=== PATIENT | female | born 1985 | race Two or more races ===

== ENCOUNTER 2020-09-24 09:30 | Emergency (ER) | payer MEDICAID ==
[~2020-09-24] VITALS: Ht 172.7 cm; Wt 68.0 kg
[2020-09-24 10:25] LABS: BILIRUBIN,URINE NEGATIVE (NEG); CLARITY,URINE CLEAR; COLOR,URINE AMBER; NITRITE,URINE NEGATIVE (NEG); PROTEIN,URINE 30 mg/dL (NEG-TRACE)
[2020-09-24] MEDS: IV NORMAL SALINE 1000ML BAG 1,000 ML IV SCH (10:31)
[2020-09-24 10:41] LABS: BACTERIA,URINE FEW /HPF (0-FEW); RBC,URINE 20-40 /HPF (0-2)
[2020-09-24 10:47] LABS: BASO % 1 % (0-3); EOS % 0 % (0-3); HEMATOCRIT 37.9 % (36.0-47.0); LYMPH # 0.6 x10^3/uL (1.0-4.8); LYMPH % 13 % (24-48); MEAN CORPUSCULAR HEMOGLOBIN 32 pg (25-35); MEAN CORPUSCULAR HGB CONC 34 g/dL (31-37); MEAN CORPUSCULAR VOLUME 93 fL (79-100); MONO # 0.3 x10^3/uL (0.0-1.1); MONO % 5 % (0-9); NEUT # 4.2 x10^3/uL (1.8-7.7); NEUT % 82 % (31-73); PLATELET COUNT 289 x10^3/uL (140-400); RED BLOOD COUNT 4.08 x10^6/uL (3.50-5.40); RED CELL DISTRIBUTION WIDTH 13.3 % (11.5-14.5); WHITE BLOOD COUNT 5.2 x10^3/uL (4.0-11.0)
--- NOTE | 2020-09-24 10:47 | PHYS DOC ---
Past Medical History Past Medical History: No Pertinent History Past Surgical History: Other Additional Past Surgical Histo: D&C Smoking Status: Never Smoker Alcohol Use: None General Adult EDM: Chief Complaint: FEVER HPI: HPI: Patient is a 35 year old female who presents with had a baby on September 12 and had a uncomplicated normal and vaginal delivery by Dr. Jones. She states that last night she began to have fever, body aches and pelvic cramping. She states that also her lower abdomen seems to be more tender than it has been. She states she is still having vaginal bleeding but states that it is not to have a and she is not having large clots. She is not going through more than 1 pad an hour. She currently rates her pain at a 4 out of 10. She denies urinary symptoms, foul-smelling abnormal vaginal discharge, nausea, vomiting, dizziness, syncope, breast redness or tenderness, back pain, shortness of breath, chest pain, cough. Review of Systems: Review of Systems: Constitutional: + fever or chills. [] Eyes: Denies change in visual acuity. [] HENT: Denies nasal congestion or sore throat. [] Respiratory: Denies cough or shortness of breath. [] Cardiovascular: Denies chest pain or edema. [] GI: +abdominal pain, denies nausea, vomiting, bloody stools or diarrhea. [] : Denies dysuria. [] Musculoskeletal: Denies back pain or joint pain. + Generalized body aches [] Integument: Denies rash. [] Neurologic: + Intermittent headache, denies focal weakness or sensory changes. [] Endocrine: Denies polyuria or polydipsia. [] Lymphatic: Denies swollen glands. [] Psychiatric: Denies depression or anxiety. [] Heart Score: C/O Chest Pain: No Risk Factors: Risk Factors: DM, Current or recent (<one month) smoker, HTN, HLP, family history of CAD, obesity. Risk Scores: Score 0 - 3: 2.5% MACE over next 6 weeks - Discharge Home Score 4 - 6: 20.3% MACE over next 6 weeks - Admit for Clinical Observation Score 7 - 10: 72.7% MACE over next 6 weeks - Early Invasive Strategies Current Medications: Current Medications Medications (Trade) Dose Ordered Sig/Bronwyn Start Time Stop Time Status Last Admin Dose Admin Sodium Chloride 1,000 ml @ 1,000 mls/hr Q1H 09/24/20 10:15 09/24/20 11:14 09/24/20 10:31 1,000 MLS/HR Allergies: Allergies: Allergies Coded Allergies Type Severity Reaction Last Updated Verified No Known Drug Allergies 09/24/20 No Physical Exam: PE: Constitutional: Well developed, well nourished, no acute distress, non-toxic appearance. [] HENT: Normocephalic, atraumatic, bilateral external ears normal, oropharynx moist, no oral exudates, nose normal. [] Eyes: PERRLA, EOMI, conjunctiva normal, no discharge. [] Neck: Normal range of motion, no tenderness, supple, no stridor. [] Cardiovascular:Heart rate regular rhythm, no murmur [] Lungs & Thorax: Bilateral breath sounds clear to auscultation [] Abdomen: Bowel sounds normal, soft, no tenderness, no masses, no pulsatile diana s. [] Skin: Warm, dry, no erythema, no rash. [] Back: No tenderness, no CVA tenderness. [] Extremities: No tenderness, no cyanosis, no clubbing, ROM intact, no edema. [] Neurologic: Alert and oriented X 3, normal motor function, normal sensory function, no focal deficits noted. [] Psychologic: Affect normal, judgement normal, mood normal. Normal physical exam [] Current Patient Data: Labs: Laboratory Tests Test 09/24/20 09:55 09/24/20 09:58 Urine Collection Type Unknown Urine Color Haylee Urine Clarity Clear Urine pH 7.0 (<5.0-8.0) Urine Specific [place] 1.025 (1.000-1.030) Urine Protein 30 mg/dL (NEG-TRACE) Urine Glucose (UA) Negative mg/dL (NEG) Urine Ketones (Stick) Negative mg/dL (NEG) Urine Blood Large (NEG) Urine Nitrite Negative (NEG) Urine Bilirubin Negative (NEG) Urine Urobilinogen Dipstick 1.0 mg/dL (0.2 mg/dL) Urine Leukocyte Esterase Large (NEG) Urine RBC 20-40 /HPF (0-2) Urine WBC 11-20 /HPF (0-4) Urine Squamous Epithelial Cells Few /LPF Urine Bacteria Few /HPF (0-FEW) Urine Mucus Slight /LPF POC Urine HCG, Qualitative Hcg positive (Negative) Vital Signs: Vital Signs Date Time Temp Pulse Resp B/P (MAP) Pulse Ox O2 Delivery O2 Flow Rate FiO2 09/24/20 09:55 98.8 55 16 147/73 (97) 100 Room Air 98.8 EKG: EKG: [] Radiology/Procedures: Radiology/Procedures: [] Impression: [facility] [address] [place] [address] IMAGING REPORT Signed PATIENT: RODO MOSER VACCOUNT: [id number] : 1985 LOCATION: ER AGE: 35 SEX: F EXAM STATUS: REG ER ORD. PHYSICIAN: LISSETH GUPTA APRN REASON: POST FEVER, AND ABDOMINAL PAIN PROCEDURE: CT ABD PELV W/ IV CONTRST ONLY CT scan of the abdomen and pelvis with contrast 09/24/2020 CLINICAL HISTORY: with fever. Abdominal pain. TECHNIQUE: After the intravenous administration of 75 cc of Omnipaque 300 only, contiguous, 2.5 mm axial sections were obtained through the abdomen and pelvis. One or more of the following individualized dose reduction techniques were utilized for this study: 1. Automated exposure control. 2. Adjustment of the mA and/or kV according to patient size. 3. Use of iterative reconstruction technique. FINDINGS: Images through the lung bases are within normal limits. The liver, spleen, pancreas, adrenal glands and kidneys are within normal limits. The gallbladder is slightly contracted. No free fluid or free air is within the abdomen. There is no evidence of bowel obstruction. There is a small fat- containing umbilical hernia which measures 1.6 cm in size. The appendix is well- visualized and is within normal limits. Images through the pelvis demonstrate the uterus to be enlarged system of the patient's being . The endometrial canal is distended with fluid. Small collections of air is seen. Increased attenuation which may represent blood products is noted. Prominent enhancing dilated vessels are seen within the uterus, right greater than left and within the adnexa. A uterine AVM is not excluded. No adnexal mass is seen. No free fluid is noted. Calcifications are seen within the pelvis consistent with phleboliths. Minimal S-shaped curvature of the thoracolumbar spine is seen. IMPRESSION: 1. Fluid and what appear to be blood products along with a small collection of air are seen within the endometrial canal of the uterus. This could be a normal finding. Retained products of conception or endometritis are not excluded, however. Prominent enhancing dilated vessels are seen within the uterus, right greater than left and within the adnexa. An uterine AVM is not excluded. Further evaluation of these findings with pelvic ultrasound is recommended. 2. No additional acute abnormality is seen. Electronically signed by: Abilio De León MD (09/24/2020 11:53 AM) [id number] DICTATED and SIGNED BY: ABILIO DE LEÓN MD DATE: 09/24/20 [id number] [facility] [address] [place], [place] [id number] IMAGING REPORT Signed PATIENT: RODO MOSER VACCOUNT: [id number] : 1985 LOCATION: ER AGE: 35 SEX: F EXAM STATUS: REG ER ORD. PHYSICIAN: LISSETH GUPTA APRN REASON: abdnormal ct findings, post PROCEDURE: PELVIS COMPLETE Transabdominal Pelvic Ultrasound: Indications: Reason: abdnormal ct findings, post Technique: Transabdominal sonographic imaging was performed and multiple static images were obtained. Results: Uterus: Hyperemic The endometrium is thickened and heterogeneous and measures 5.4 mm thick. The right ovary appears normal with normal blood flow and measures 3.4 x 2.8 x 2.1 cm. The left ovary appears normal with normal blood flow and measures 4.7 x 3.0 x 3.1 cm. Impression: Thickened heterogeneous endometrium and hyperemia the uterus consistent with retained products of conception. Electronically signed by: Keshawn Hurley III, MD (09/24/2020 1:08 PM) [facility] DICTATED and SIGNED BY: KESHAWN HURLEY III, MD DATE: 09/24/20 [id number] Course & Med Decision Making: Course & Med Decision Making Pertinent Labs and Imaging studies reviewed. (See chart for details) See HPI. Alert and oriented x4. Ambulatory with a steady gait. Speaks in full clear sentences. Skin pink warm and dry. Abdomen is soft and nontender. She is afebrile here in the ED. She states yesterday her temperature got as high as 100.1. Patient does have retained products. She does not have a white count. I have spoken to Dr. Jones who delivered her baby and he states he will be down to see the patient. I did give her a dose of Rocephin. Dr. Jones has come down to see the patient he states he will take her for a D&C. Ordered a rapid Covid on her. [] Dragon Disclaimer: Dragon Disclaimer: This electronic medical record was generated, in whole or in part, using a voice recognition dictation system. Departure Departure Impression: Primary Impression: Retained products of conception Additional Impression: Fever Qualified Codes: R50.9 - Fever, unspecified Disposition: 01 DC HOME SELF CARE/HOMELESS Condition: STABLE Referrals: NO PCP (PCP) LISSETH GUPTA UNIX ENGINEER Sep 24, 2020 10:47
[2020-09-24 10:56] LABS: PROTHROMBIN TIME PATIENT 13.8 SEC (11.7-14.0)
[2020-09-24 11:04] LABS: CALCIUM 8.1 mg/dL (8.5-10.1); CREATININE 0.8 mg/dL (0.6-1.0); GFR 81.2; POTASSIUM 3.6 mmol/L (3.5-5.1)
[2020-09-24 11:09] LABS: ALBUMIN 2.9 g/dL (3.4-5.0); ALBUMIN/GLOBULIN RATIO 0.7 (1.0-1.7); TOTAL BILIRUBIN 0.5 mg/dL (0.2-1.0); TOTAL PROTEIN 6.9 g/dL (6.4-8.2)
[2020-09-24] MEDS ORDERED: CONTRAST GIVEN. MC PRN (11:15)
[2020-09-24] MEDS: IOHEXOL 300 MG/ML 100ML VIAL. IV ONE (11:20)
--- NOTE | 2020-09-24 11:55 | RAD ---
CT scan of the abdomen and pelvis with contrast 09/24/2020 CLINICAL HISTORY: with fever. Abdominal pain. TECHNIQUE: After the intravenous administration of 75 cc of Omnipaque 300 only, contiguous, 2.5 mm ax ial sections were obtained through the abdomen and pelvis. One or more of the following individualized dose reduction techniques were utilized for this study: 1. Automated exposure control. 2. Adjustment of the mA and/or kV according to patient size. 3. Use of iterative reconstruction technique. FINDINGS: Images through the lung bases are within normal limits. The liver, spleen, pancreas, adrenal glands and kidneys are within normal limits. The gallbladder is slightly contracted. No free fluid or free air is within the abdomen. There is no evidence of bowel obstruction. There is a small fat-containing umbilical hernia which measures 1.6 cm in size. The appendix is well-visualized and is within normal limits. Images through the pelvis demonstrate the uterus to be enlarged system of the patient's being postpar gabriele. The endometrial canal is distended with fluid. Small collections of air is seen. Increased atten uation which may represent blood products is noted. Prominent enhancing dilated vessels are seen with in the uterus, right greater than left and within the adnexa. A uterine AVM is not excluded. No adnex al mass is seen. No free fluid is noted. Calcifications are seen within the pelvis consistent with ph leboliths. Minimal S-shaped curvature of the thoracolumbar spine is seen. IMPRESSION: 1. Fluid and what appear to be blood products along with a small collection of air are seen within th e endometrial canal of the uterus. This could be a normal finding. Retained products of co nception or endometritis are not excluded, however. Prominent enhancing dilated vessels are seen with in the uterus, right greater than left and within the adnexa. An uterine AVM is not excluded. Further evaluation of these findings with pelvic ultrasound is recommended. 2. No additional acute abnormality is seen. Electronically signed by: Abilio De León MD (09/24/2020 11:53 AM) [id number]
--- NOTE | 2020-09-24 13:11 | RAD ---
Transabdominal Pelvic Ultrasound: Indications: Reason: abdnormal ct findings, post Technique: Transabdominal sonographic imaging was performed and multiple static images were obtained . Results: Uterus: Hyperemic The endometrium is thickened and heterogeneous and measures 5.4 mm thick. The right ovary appears normal with normal blood flow and measures 3.4 x 2.8 x 2.1 cm. The left ovary appears normal with normal blood flow and measures 4.7 x 3.0 x 3.1 cm. Impression: Thickened heterogeneous endometrium and hyperemia the uterus consistent with retained products of con ception. Electronically signed by: Artur Lu III, MD (09/24/2020 1:08 PM) [facility]
--- NOTE | 2020-09-24 14:01 | PDOC1 ---
UNIFORMER H&P Date of Admission: Date of Admission: History of Present Illness: 35y s/p on 09/12/20 who presents to the ER with f/c. She states that the f/c began last night. She also felt an increased intensity of her cramps. She thinks her VB has increased a little. In the ER, labs and imaging was obtained. The pt had no WBC but a slight left shift. Her Hgb was up 13.0 (10.9 on d/c). A CT revealed 1. Fluid and what appear to be blood products along with a small collection of air are seen within the endometrial canal of the uterus. This could be a normal finding. Retained products of conception or endometritis are not excluded, however. Prominent enhancing dilated vessels are seen within the uterus, right greater than left and within the adnexa. An uterine AVM is not excluded. Further evaluation of these findings with pelvic ultrasound is recommended. 2. No additional acute abnormality is seen. An u/s revealed Thickened heterogeneous endometrium and hyperemia the uterus consistent with retained products of conception. Discussed results with the pt. Explained that imaging not definitive for alem ined products but with her h/o retained products and the u/s thinking it to be more likely, would benefit to performing D&C. PMH: Denies PSH: Denies Meds: PNV All: NKDA OBHx: TSVD x 4 SH: no tob, no EtOH FH: noncontributory Medications: Meds: Current Medications Medications (Trade) Dose Ordered Sig/Bronwyn Route PRN Reason Start Time Stop Time Status Last Admin Dose Admin Sodium Chloride 1,000 ml @ 1,000 mls/hr Q1H IV 09/24/20 10:15 09/24/20 11:14 DC 09/24/20 10:31 Iohexol (Omnipaque 300 Mg/ml) 75 ml 1X ONCE IV 09/24/20 11:30 09/24/20 11:31 DC 09/24/20 11:20 Allergies: Coded Allergies: No Known Drug Allergies (Unverified , 09/24/20) Physical Exam: Vital Signs: Vital Signs Date Time Temp Pulse Resp B/P (MAP) Pulse Ox O2 Delivery O2 Flow Rate FiO2 09/24/20 09:55 98.8 55 16 147/73 (97) 100 Room Air 98.8 PE: GENERAL: No apparent distress. Alert and oriented. HEENT: Head normocephalic, atraumatic. NECK: Supple LUNGS: Clear to auscultation. HEART: RRR, S1, S2 present, pulses intact ABDOMEN: Soft, positive bowel sounds. EXTREMITIES: No cyanosis or edema. NEUROLOGIC: Normal speech, normal tone PSYCHIATRIC: Normal affect, normal mood. SKIN: No ulceration. Labs: Laboratory Tests Test 09/24/20 09:55 09/24/20 09:58 09/24/20 10:30 Urine Collection Type Unknown Urine Color Haylee Urine Clarity Clear Urine pH 7.0 (<5.0-8.0) Urine Specific [place] 1.025 (1.000-1.030) Urine Protein 30 mg/dL (NEG-TRACE) Urine Glucose (UA) Negative mg/dL (NEG) Urine Ketones (Stick) Negative mg/dL (NEG) Urine Blood Large (NEG) Urine Nitrite Negative (NEG) Urine Bilirubin Negative (NEG) Urine Urobilinogen Dipstick 1.0 mg/dL (0.2 mg/dL) Urine Leukocyte Esterase Large (NEG) Urine RBC 20-40 /HPF (0-2) Urine WBC 11-20 /HPF (0-4) Urine Squamous Epithelial Cells Few /LPF Urine Bacteria Few /HPF (0-FEW) Urine Mucus Slight /LPF POC Urine HCG, Qualitative Hcg positive (Negative) White Blood Count 5.2 x10^3/uL (4.0-11.0) Red Blood Count 4.08 x10^6/uL (3.50-5.40) Hemoglobin 13.0 g/dL (12.0-15.5) Hematocrit 37.9 % (36.0-47.0) Mean Corpuscular Volume 93 fL (79-100) Mean Corpuscular Hemoglobin 32 pg (25-35) Mean Corpuscular Hemoglobin Concent 34 g/dL (31-37) Red Cell Distribution Width 13.3 % (11.5-14.5) Platelet Count 289 x10^3/uL (140-400) Neutrophils (%) (Auto) 82 % (31-73) H Lymphocytes (%) (Auto) 13 % (24-48) L Monocytes (%) (Auto) 5 % (0-9) Eosinophils (%) (Auto) 0 % (0-3) Basophils (%) (Auto) 1 % (0-3) Neutrophils # (Auto) 4.2 x10^3/uL (1.8-7.7) Lymphocytes # (Auto) 0.6 x10^3/uL (1.0-4.8) L Monocytes # (Auto) 0.3 x10^3/uL (0.0-1.1) Eosinophils # (Auto) 0.0 x10^3/uL (0.0-0.7) Basophils # (Auto) 0.0 x10^3/uL (0.0-0.2) Prothrombin Time 13.8 SEC (11.7-14.0) Prothrombin Time INR 1.1 (0.8-1.1) Sodium Level 136 mmol/L (136-145) Potassium Level 3.6 mmol/L (3.5-5.1) Chloride Level 102 mmol/L (98-107) Carbon Dioxide Level 28 mmol/L (21-32) Anion Gap 6 (6-14) Blood Urea Nitrogen 9 mg/dL (7-20) Creatinine 0.8 mg/dL (0.6-1.0) Estimated GFR (Cockcroft-Gault) 81.2 BUN/Creatinine Ratio 11 (6-20) Glucose Level 90 mg/dL (70-99) Calcium Level 8.1 mg/dL (8.5-10.1) L Total Bilirubin 0.5 mg/dL (0.2-1.0) Aspartate Amino Transferase (AST) 27 U/L (15-37) Alanine Aminotransferase (ALT) 30 U/L (14-59) Alkaline Phosphatase 80 U/L (46-116) Total Protein 6.9 g/dL (6.4-8.2) Albumin 2.9 g/dL (3.4-5.0) L Albumin/Globulin Ratio 0.7 (1.0-1.7) L Lipase 115 U/L (73-393) Laboratory Tests 09/24/20 10:30 Laboratory Tests 09/24/20 10:30 Laboratory Tests 09/24/20 10:30 Assessment & Plan: A/P 35y s/p on 09/12/20 with f/c and abd pain 1.) F/c and abd pain WBC 5.2, but left shift. Bleeding about the same. U/s reported to be consistent with retain POC, will place on schedule for suction D&C 2.) H/o retained placenta 3.) Hgb 11.9 -> 10.9 -> 13.0 4.) TDAP given 08/12/20 5.) Flu vaccine given 04/08/20 MERYL JIN MD Sep 24, 2020 14:01
[2020-09-24] MEDS: cefTRIAXone IV Push 1 GM VIAL. IVP ONE (14:06)
[2020-09-24] MEDS ORDERED: DEXAMETHASONE SOD PHOS 4 MG/ML VIAL ONE (14:51)
[2020-09-24] MEDS ORDERED: PROPOFOL 10 MG/ML (20ML) VIAL. IV ONE (14:51)
[2020-09-24] MEDS ORDERED: LIDOCAINE 2% PF 5 ML VIAL. ONE (14:51)
[2020-09-24] MEDS ORDERED: ONDANSETRON PF 4 MG/2 ML VIAL. ONE (14:52)
[2020-09-24] MEDS ORDERED: fentaNYL PF VIAL 100 MCG/2 ML VIAL ONE (14:52)
[2020-09-24] MEDS ORDERED: OXYTOCIN 10 UNIT/ML VIAL. ONE (14:54)
[2020-09-24] MEDS ORDERED: HYDROmorphone 2 MG/ML VIAL IVP PRN (15:30)
[2020-09-24] MEDS ORDERED: fentaNYL PF VIAL 100 MCG/2 ML VIAL IVP PRN ×2 (15:30)
[2020-09-24] MEDS ORDERED: PROCHLORPERAZINE 10 MG/2 ML VIAL. IVP PRN (15:30)
[2020-09-24] MEDS ORDERED: MORPHINE SULFATE 2 MG/ML VIAL. IVP PRN (15:30)
[2020-09-24] MEDS: IV RINGERS,LACTATED 1000ML 1,000 ML IV SCH (15:30)
[2020-09-24] MEDS ORDERED: DOXYCYCLINE HYCLATE IV ONE ×2 (15:45)
[2020-09-24] MEDS ORDERED: DEXTROSE 5% IV ONE ×2 (15:45)
[2020-09-24] MEDS ORDERED: SEVOFLURANE 31 TO 60 MINUTES. IH ONE (15:52)
[2020-09-24] MEDS ORDERED: PHENYLEPHRINE in 0.9% NACL PF 1 MG/10 ML SYRINGE. IV ONE (15:52)
[2020-09-24] MEDS ORDERED: KETOROLAC 30 MG/ML VIAL. ONE (16:00)
--- NOTE | 2020-09-24 16:06 | PDOC4 ---
OPERATIVE NOTE: PreOp Dx: 1.) s/p on 09/12/20, 2.) F/c and abd pain , 3.) retained POC, 4.) H/o retained placenta PostOp: same Procedure: Suction D&C Surgeons: Eve Jin Anesthesia: GETA EBL: 10 cc Fluids: 700 cc UOP: 20 cc Path: retained POC Complications: None MERYL JIN MD Sep 24, 2020 16:06
[2020-09-24] MEDS ORDERED: OXYC1TAB15 PO (16:11)
[2020-09-24 17:25] VITALS: BP 102/62
--- NOTE | 2020-09-24 18:34 | OP ---
DATE OF SURGERY: 09/24/2020 PREOPERATIVE DIAGNOSES: 1. Status post vaginal delivery on 09/12/2020. 2. Fevers, chills, and abdominal pain. 3. Retained products of conception. 4. History of retained products of conception. POSTOPERATIVE DIAGNOSES: 1. Status post vaginal delivery on 09/12/2020. 2. Fevers, chills, and abdominal pain. 3. Retained products of conception. 4. History of retained products of conception. PROCEDURE: Suction dilation and curettage. SURGEON: Meryl Jin MD. ANESTHESIA: General endotracheal intubation. ESTIMATED BLOOD LOSS: 10 mL. FLUIDS: 700 mL. URINE OUTPUT: 20 mL. PATHOLOGY: Retained products of conception. COMPLICATIONS: None. DESCRIPTION OF PROCEDURE: The patient was taken to the operating room where general endotracheal intubation was obtained without difficulty. The patient was prepped and draped in normal sterile fashion. Posterior weighted speculum was placed into the patient's vagina and a right angle retractor was used to visualize the cervix. A single tooth tenaculum was then placed on the anterior lip of the cervix. The cervix was sufficiently dilated to allow for a 10 mm curved suction curette to be placed. The uterus was sounded to be roughly around 13 cm. Suction device was then placed and activated and curettage was then rotated to clear all products of conception. The first pass did include some products of conception. At this point, the suction curette was then continued, approximately 3 passes until minimal products of conception as well as minimal bleeding was returning. At that point, sharp curettage was performed until gritty texture was felt in all 4 quadrants. At that point, good hemostasis was noted. The tenaculum was then removed. Hemostasis was noted at the tenaculum site. The patient was then brought to the recovery room in stable condition. Prior to the procedure, the patient received 200 mg of doxycycline. She also received Rocephin in the ER. MERYL JIN MD DR: CARLOS/nts JOB#: [id number] / [id number] YUMI
== END 2020-09-24 15:20 | disposition home or self-care (01) ==
LOC: ER 09:30
DX: O72.2 Delayed and secondary postpartum hemorrhage (principal); Z20.822 Contact with and (suspected) exposure to COVID-19; R50.9 Fever, unspecified; R51.9 Headache, unspecified; Z98.890 Other specified postprocedural states
CPT/HCPCS: 36415; 74177; 76856; 80053; 81001; 81025; 83690; 85025; 85610; 87086; 87426; 96361; 96374; 99285; J0696; J1100; J1885; J2370; J2405; J2704; J3010; J7030; J7120; Q9967; U0003; C9803; J2590; U0005